=== PATIENT | male | born 1985 ===

== ENCOUNTER 2021-10-10 02:19 | Emergency (ER) | payer SELFPAY ==
[2021-10-10] MEDS: HYDROmorphone 2 MG/ML Syringe IVPUSH ONE (02:34)
[2021-10-10] MEDS: Ketorolac 30 MG/ML SDV IVPUSH ONE (02:36)
[2021-10-10] MEDS: Ondansetron 4 MG/2 ML SDV IVPUSH ONE (02:36)
[2021-10-10] MEDS: Ketorolac 30 MG/ML SDV ONE (03:06)
[2021-10-10] MEDS: Sodium Chloride 0.9% 1,000 ML IV ONE (03:09)
[2021-10-10 03:18] LABS: ESTIMATED GFR 113 mL/min (>60)
== END 2021-10-10 06:11 | disposition home or self-care (01) ==
LOC: LB.ED 02:33
DX: N20.0 Calculus of kidney (principal); K82.8 Other specified diseases of gallbladder; F17.210 Nicotine dependence, cigarettes, uncomplicated
CPT/HCPCS: 36415; 74176; 80053; 80307; 81001; 83690; 85025; 96374; 96375; 99284; A0425; A0429; J1170; J1885; J2405; J7030